=== PATIENT | male | born 1945 | race Caucasian/White ===

== ENCOUNTER 2020-07-25 08:45 | Inpatient (IN) | payer MEDICARE ==
[~2020-07-25] VITALS: Ht 170.2 cm; Wt 63.5 kg
[2020-07-25] MEDS ORDERED: GLUCOSE ORAL GEL 15 GM TUBE PO ONE (09:00)
[2020-07-25] MEDS ORDERED: FINA5TAB11 PO (09:14)
[2020-07-25] MEDS ORDERED: ANAG1CAP3 PO (09:14)
[2020-07-25] MEDS ORDERED: TAMS-3 PO (09:14)
[2020-07-25] MEDS ORDERED: ATOR40TA PO (09:14)
[2020-07-25] MEDS ORDERED: ACET-2154 PO (09:14)
[2020-07-25] MEDS ORDERED: METO-356 PO (09:14)
[2020-07-25] MEDS ORDERED: RIVA10TA PO (09:14)
[2020-07-25] MEDS ORDERED: RIOC1.5T PO (09:14)
[2020-07-25] MEDS ORDERED: FURO-151 PO (09:14)
[2020-07-25 09:15] LABS: BASOPHILS % (AUTO) 0.5 % (0.0-2.0); EOSINOPHILS # (AUTO) 0.2 K/uL (0.0-0.7); EOSINOPHILS % (AUTO) 2.1 % (0.0-7.0); HEMATOCRIT 38.8 % (36.7-47.1); HEMOGLOBIN 13.3 g/dL (12.5-16.3); LYMPHOCYTES # (AUTO) 0.7 K/uL (20.0-40.0); LYMPHOCYTES % (AUTO) 7.9 % (20.5-51.5); MEAN CORPUSCULAR HEMOGLOBIN 31.1 uug (23.8-33.4); MEAN CORPUSCULAR HGB CONC 34 g/dL (32.5-36.3); MEAN CORPUSCULAR VOLUME 90.6 fL (73.0-96.2); MONOCYTES # (AUTO) 0.5 K/uL (2.0-10.0); MONOCYTES % (AUTO) 5.8 % (0.0-11.0); NEUTROPHILS # (AUTO) 7.5 K/uL (1.8-8.9); NEUTROPHILS % (AUTO) 83.7 % (38.5-71.5); PLATELET COUNT (AUTO) 520 K/uL (152-348); RED BLOOD CELL COUNT(AUTO) 4.28 MIL/uL (4.06-5.63); WHITE BLOOD COUNT (AUTO) 8.9 K/uL (3.6-10.2)
[2020-07-25 09:27] LABS: ALANINE AMINOTRANSFERASE 27 U/L (16-63); ALKALINE PHOSPHATASE 110 U/L (50-136); BILIRUBIN,DIRECT 0.3 mg/dL (0.0-0.2); BILIRUBIN,TOTAL 1.1 mg/dL (0.2-1.0); CARBON DIOXIDE 27 mmol/L (21-32); CHLORIDE 104 mmol/L (98-107); CREATININE 1.3 mg/dL (0.6-1.3); GLUCOSE 79 mg/dL (74-106); POTASSIUM 3.9 mmol/L (3.5-5.1); TOTAL PROTEIN, SERUM 6.6 g/dL (6.4-8.2); UREA NITROGEN, BLOOD 27 mg/dL (7-18)
--- NOTE | 2020-07-25 09:27 | NUR ---
PT IS IN ROOM #1B. DR QUINTANILLA EVALUATED THE PT.
[2020-07-25 09:33] LABS: ACETAMINOPHEN < 2.0 ug/mL (10-30); ETHANOL < 3 MG/DL (0-0)
[2020-07-25] MEDS ORDERED: GLUCOSE ORAL GEL 15 GM TUBE ONE (09:33)
[2020-07-25 09:35] LABS: ASPARTATE AMINOTRANSFERASE 50 U/L (15-37)
[2020-07-25 09:46] LABS: MAGNESIUM 1.9 mg/dL (1.8-2.4); PHOSPHOROUS 3.4 mg/dL (2.5-4.9)
[2020-07-25 09:56] LABS: THYROID STIMULATING HORMONE 1.541 mIU/mL (0.358-3.740)
[2020-07-25 11:37] LABS: *BILIRUBIN,URIN NEGATIVE (NEGATIVE); *CLARITY,URINE CLEAR (CLEAR); *COLOR,URINE YELLOW (YELLOW); *KETONES,URINE TRACE (NEGATIVE); *UROBILINOGEN,URINE 0.2 E.U./dl (NORMAL); LEUKOCYTE ESTERASE ,URINE NEGATIVE (NEGATIVE); NITRITE, URINE NEGATIVE (NEGATIVE); PH,URINE 6.5 (5.0-8.0); UGLUCOSE NEGATIVE (NEGATIVE)
[2020-07-25 11:43] LABS: *AMPHETAMINE, URINE NEGATIVE (NEGATIVE); *CANNABINOID, URINE NEGATIVE (NEGATIVE); *COCCAINE, URINE NEGATIVE (NEGATIVE); *OPIATE, URINE NEGATIVE (NEGATIVE); *PHENCYCLIDINE SCREEN,URINE NEGATIVE (NEGATIVE)
[2020-07-25 12:01] LABS: *BLOOD, URINE TRACE (NEGATIVE)
[2020-07-25] MEDS ORDERED: Z GUARD REMEDY PASTE 57 GM TUBE TOP PRN (12:30)
[2020-07-25] MEDS ORDERED: HYDROCODONE/APAP 5-325MG TABLET PO PRN (12:30)
[2020-07-25] MEDS ORDERED: ONDANSETRON 4 MG/2 ML VIAL IV PRN (12:30)
[2020-07-25] MEDS ORDERED: MAGNESIUM HYDROXIDE 30 ML LIQUID UDC PO PRN (12:30)
[2020-07-25] MEDS ORDERED: HALOPERIDOL LACTATE 5 MG/1 ML VIAL IM ONE (13:15)
[2020-07-25 14:00] VITALS: BP 154/89
--- NOTE | 2020-07-25 14:10 | NUR ---
REPORT WAS GIVEN TO REFRIGERATION HOUSEMAN . PT WAS TRANSFERED TO TELEMETRY ROOM #315,
--- NOTE | 2020-07-25 14:30 | NUR ---
Received this admission from ER, 74 YO male with diagnosis of altered mental status, syncope, hypoglycemia. Transferred to bed comfortably but patient was agitated and combative, holding [employer]ING [employer]BLER's hand. Reoriented and able to tell his name, place and time. Requested for sitter for safety.
[2020-07-25 14:50] LABS: BACTERIA,URINE NONE SEEN /HPF (NONE SEEN); SQUAMOUS EPITHELIAL CELL,UR FEW /HPF (NONE SEEN); WBC,URINE 0-3 /HPF (0-3)
[2020-07-25] MEDS: IV D5 1/2 NS 1000 ML 1,000 ML IV PRN (15:37)
--- NOTE | 2020-07-25 15:40 | NUR ---
IVF started as ordered. 1:1 sitter at bedside
--- NOTE | 2020-07-25 18:31 | NUR ---
Patient has been sleeping, awaken to feed dinner but refused. IVF infusing. 1:1 sitter at bedside
--- NOTE | 2020-07-25 18:46 | NUR ---
Still sleeping, unable to wake up fully to take medicine. Endorsed for further care and follow up.
[2020-07-25 19:37] VITALS: BP 132/57
[2020-07-25] MEDS: ANAGRELIDE 1 MG PO SCH (19:55)
[2020-07-25] MEDS: ADEMPAS 1.5 MG PO SCH (19:55)
[2020-07-25] MEDS: RIVAROXABAN 10 MG TABLET PO SCH (19:57)
[2020-07-25] MEDS: ATORVASTATIN 40 MG TABLET PO SCH (20:04)
[2020-07-26] VITALS: BP 138/62
[2020-07-26 04:00] VITALS: BP 109/63
[2020-07-26] MEDS: IV D5 1/2 NS 1000 ML 1,000 ML IV PRN ×2 (04:07→15:58)
--- NOTE | 2020-07-26 06:24 | NUR ---
pt rested well in between care; occasionally combative and confused; sitter at bedside; incontinence care; needs attended; safety maintained.
[2020-07-26 06:51] LABS: BASOPHILS % (AUTO) 0.5 % (0.0-2.0); EOSINOPHILS # (AUTO) 0.1 K/uL (0.0-0.7); HEMATOCRIT 38.1 % (36.7-47.1); HEMOGLOBIN 12.7 g/dL (12.5-16.3); LYMPHOCYTES # (AUTO) 0.9 K/uL (20.0-40.0); LYMPHOCYTES % (AUTO) 11.6 % (20.5-51.5); MEAN CORPUSCULAR HEMOGLOBIN 30.2 uug (23.8-33.4); MEAN CORPUSCULAR HGB CONC 33 g/dL (32.5-36.3); MEAN CORPUSCULAR VOLUME 90.8 fL (73.0-96.2); MONOCYTES # (AUTO) 0.7 K/uL (2.0-10.0); MONOCYTES % (AUTO) 8.7 % (0.0-11.0); NEUTROPHILS # (AUTO) 5.8 K/uL (1.8-8.9); NEUTROPHILS % (AUTO) 77.2 % (38.5-71.5); PLATELET COUNT (AUTO) 492 K/uL (152-348); RED BLOOD CELL COUNT(AUTO) 4.19 MIL/uL (4.06-5.63); WHITE BLOOD COUNT (AUTO) 7.5 K/uL (3.6-10.2)
[2020-07-26 06:52] LABS: CREATININE 1.2 mg/dL (0.6-1.3); MAGNESIUM 1.9 mg/dL (1.8-2.4); PHOSPHOROUS 3.2 mg/dL (2.5-4.9); POTASSIUM 3.6 mmol/L (3.5-5.1)
--- NOTE | 2020-07-26 07:20 | NUR ---
RECEIVED PATIENT IN BED WITH EYES CLOSED AROUSES EASILY MORE COOPERATIVE NO S/S OF PAIN OR DISCOMFORTS REMAIN ON ROOM AIR WITH NO SHORTNESS OF BREATH HE HAS ONE ON ONE SITTER FOR SAFETY TELE IS SR IVF IN PROGRESS ORDERED WITH NO S/S OF INFILTERATION ON SITE PATIENT MADE COMFORTABLE WILL CONTINUE TO OBSERVE.
[2020-07-26] MEDS: FINASTERIDE 5 MG TABLET PO SCH (08:20)
[2020-07-26] MEDS: ADEMPAS 1.5 MG PO SCH ×3 (08:20→16:08)
[2020-07-26] MEDS: ANAGRELIDE 1 MG PO SCH ×2 (08:20→16:08)
--- NOTE | 2020-07-26 09:20 | NUR ---
PATIENT SEEN AND EXAMINED BY DR MATT WITH NEW ORDERS AND NOTED
[2020-07-26 12:00] VITALS: BP 129/68
--- NOTE | 2020-07-26 12:01 | NUR ---
CALL RECEIVED FROM DR HOLDER STATED THAT HE ALREADY SPOKEN TO PATIENTS AND WILL START PATIENT ON SINEMET QID BUT TIME SPECIFIC AND NOTED.
[2020-07-26] MEDS: ropiniROLE 0.25 MG TABLET PO SCH ×3 (13:53→20:41)
--- NOTE | 2020-07-26 14:45 | NUR ---
PATIENT IS BEING PREPPED FOR MRI ORDERED HE IS UNABLE TO GIVE ME ACCURATE INFORMATION SO I CALLED THE PATIENTS FRED SPOKE WITH HER AND SHE ASSISTED WITH THE MRI QUESTIONAIRES AND DOCUMENTED.
[2020-07-26] MEDS ORDERED: CARBIDOPA/LEVODOPA 25-100MG TABLET PO SCH (16:00)
[2020-07-26 16:01] VITALS: BP 98/53
[2020-07-26] MEDS: RIVAROXABAN 10 MG TABLET PO SCH (16:16)
--- NOTE | 2020-07-26 16:17 | NUR ---
SEEN BY THE PHYSICAL THERAPY WITH NO AMBULATION YET TODAY WILL SEE PATIENT TOMORROW TO CONTINUE THERAPEUTIC EXERCISES.IV SITE RIGHT UPPER ARM INFILTERATED RESTARTED TO HIS LEFT FOREARM WITH GAUGE 20 WITH ONE ATTEMPT CONTINUE ON IVF ORDERED CONTINUE WITH ONE ON ONE SITTER FOR SAFETY PATIENT IS ALERT BUT IS DISORIENTED AND HYPERVOCAL ALL NEEDS ANTICIPATED AND SATISFIED.WILL CONTINUE TO OBSERVE
[2020-07-26 16:18] LABS: *CREATININE,URINE 371.7 mg/dL (30-125); *URINE TOTAL PROTEIN RANDOM 38.5 mg/dL (<150/24HR)
--- NOTE | 2020-07-26 18:00 | NUR ---
RESTING IN BED DENIES DISCOMFORTS REMAINS DISORGANISED WITH DISORIENTATION RUPINDER A SITTER FOR SAFETY WILL CONTINUE TO OBSERVE.
--- NOTE | 2020-07-26 19:55 | NUR ---
REceived patient in bed.Confused and hyperverbal .Orientation rendered.Patient denies pain or discomfort.No s/s of distress noted at this time .On RA.IV on left FA with 20 g with D5 1/2 NS running well at 75 cc/hr. Patient has 1 :1 sitter for safety.Complaint with medications.Will continue to monitor.
[2020-07-26 20:00] VITALS: BP 125/61
[2020-07-26] MEDS: ATORVASTATIN 40 MG TABLET PO SCH (20:41)
[2020-07-26] MEDS: Z GUARD REMEDY PASTE 57 GM TUBE TOP SCH (20:50)
[2020-07-27 00:23] VITALS: BP 130/67
[2020-07-27] MEDS: ACETAMINOPHEN 325 MG TABLET PO PRN ×2 (01:43→20:09)
[2020-07-27 04:51] VITALS: BP 129/67
[2020-07-27] MEDS: IV D5 1/2 NS 1000 ML 1,000 ML IV PRN ×2 (05:38→22:29)
[2020-07-27 06:41] LABS: BASOPHILS # (AUTO) 0.1 K/uL (0.0-8.0); BASOPHILS % (AUTO) 0.8 % (0.0-2.0); EOSINOPHILS # (AUTO) 0.2 K/uL (0.0-0.7); EOSINOPHILS % (AUTO) 2.5 % (0.0-7.0); HEMATOCRIT 35.1 % (36.7-47.1); LYMPHOCYTES # (AUTO) 0.9 K/uL (20.0-40.0); MEAN CORPUSCULAR HEMOGLOBIN 31.2 uug (23.8-33.4); MEAN CORPUSCULAR HGB CONC 34 g/dL (32.5-36.3); MEAN CORPUSCULAR VOLUME 91.3 fL (73.0-96.2); MONOCYTES # (AUTO) 0.6 K/uL (2.0-10.0); MONOCYTES % (AUTO) 8.5 % (0.0-11.0); NEUTROPHILS # (AUTO) 5.5 K/uL (1.8-8.9); NEUTROPHILS % (AUTO) 76.2 % (38.5-71.5); PLATELET COUNT (AUTO) 449 K/uL (152-348); RED BLOOD CELL COUNT(AUTO) 3.84 MIL/uL (4.06-5.63); WHITE BLOOD COUNT (AUTO) 7.2 K/uL (3.6-10.2)
[2020-07-27 07:04] LABS: CREATININE 1.3 mg/dL (0.6-1.3); MAGNESIUM 1.8 mg/dL (1.8-2.4); PHOSPHOROUS 3.3 mg/dL (2.5-4.9); POTASSIUM 3.4 mmol/L (3.5-5.1)
[2020-07-27] MEDS ORDERED: POTASSIUM CHLORIDE 20 MEQ TAB.PRT.SR PO ONE ×2 (08:15→09:00)
--- NOTE | 2020-07-27 08:21 | NUR ---
Patient refused morning vitals and stating that he needs to talk to the doctor before vitals are taken. Educated the need but not making any sense. also refused breakfast
[2020-07-27 08:58] VITALS: BP 128/83
[2020-07-27] MEDS: Z GUARD REMEDY PASTE 57 GM TUBE TOP SCH ×2 (09:03→21:33)
--- NOTE | 2020-07-27 09:15 | NUR ---
Asssisted 1:1 with vital signs taking, patient got aggressive and tried to squeeze nurse's hand. Distracted patient but refused morning medications and stated 'Take my deposition. It's none of your business why I don't want to take my medication."
[2020-07-27] MEDS: ANAGRELIDE 1 MG PO SCH ×2 (10:22→20:02)
[2020-07-27] MEDS: ADEMPAS 1.5 MG PO SCH ×3 (10:22→20:02)
[2020-07-27] MEDS: FINASTERIDE 5 MG TABLET PO SCH (10:22)
[2020-07-27] MEDS: ropiniROLE 0.25 MG TABLET PO SCH ×4 (10:22→20:10)
[2020-07-27 12:25] VITALS: BP 135/76
--- NOTE | 2020-07-27 13:19 | NUR ---
Patient refused lunch at this time since he just ate a little breakfast, and finished ensure. Compliant with medications at this time. But still confused
--- NOTE | 2020-07-27 13:43 | NUR ---
picked up for MRI. Report given to [facility] EMT personnel
--- NOTE | 2020-07-27 15:01 | NUR ---
Fernanda, patient's picked up cellphone and tow driver, signed belongings list
--- NOTE | 2020-07-27 16:40 | NUR ---
Patient came back from MRI, report given from EMT personnel and 1:1 sitter that patient getting upset and agitated coming back. Patient in bed awake, still confused. On RA with no SOB or distress at this time. 1:1 sitter at bedside for safety.
[2020-07-27 16:45] VITALS: BP 141/73
--- NOTE | 2020-07-27 17:22 | NUR ---
Patient refusing medications again, stating he needs to go home and "take care of cases.' Refusing to eat too. Encouraged but gets agitated
[2020-07-27] MEDS: RIVAROXABAN 10 MG TABLET PO SCH (20:08)
[2020-07-27] MEDS: ATORVASTATIN 40 MG TABLET PO SCH (20:09)
[2020-07-27 20:32] VITALS: BP 130/75
[2020-07-28 00:39] VITALS: BP 120/62
[2020-07-28 05:00] VITALS: BP 122/91
--- NOTE | 2020-07-28 05:00 | NUR ---
Patient awake at this time. Finally agreed to be cleaned and changed, only slept for a few hours
--- NOTE | 2020-07-28 06:58 | NUR ---
Patient very argumentative, started to hit sitter and nurse when cleaned and changed. Doesn't want to be touched and get aggressive, removing clothes
[2020-07-28 07:30] VITALS: BP 151/84
[2020-07-28] MEDS ORDERED: FURO-151 PO (08:01)
[2020-07-28] MEDS ORDERED: ROPI0.252 PO (08:03)
--- NOTE | 2020-07-28 09:00 | NUR ---
VERY COOPERATIVE WITH MEDS. DENIES PAIN OR DISCOMFORT. INC URINE. BED BATH & LINEN CHANGED.
[2020-07-28] MEDS: ADEMPAS 1.5 MG PO SCH ×2 (09:13→12:48)
[2020-07-28] MEDS: ropiniROLE 0.25 MG TABLET PO SCH ×2 (09:13→12:48)
[2020-07-28] MEDS: ANAGRELIDE 1 MG PO SCH (09:14)
[2020-07-28] MEDS: FINASTERIDE 5 MG TABLET PO SCH (09:14)
[2020-07-28] MEDS: Z GUARD REMEDY PASTE 57 GM TUBE TOP SCH (09:15)
[2020-07-28 12:00] VITALS: BP 145/84
[2020-07-28] MEDS: IV D5 1/2 NS 1000 ML 1,000 ML IV PRN (12:48)
[2020-07-28 16:00] VITALS: BP 116/70
--- NOTE | 2020-07-28 16:00 | NUR ---
IV DC'D. ANGIOCATH REMOVED INTACT. PREPARED FOR DISCHARGE. DIAPER CHANGED.
--- NOTE | 2020-07-28 16:50 | NUR ---
Discharged via [place] to ambulance. No c/o discomfort.
== END 2020-07-28 17:00 | DRG 56 ==
LOC: ER 08:45 → TELE3 12:21 → MEDSURG3 07-27 09:05
PROVIDERS: ADMIT Internal Medicine; ATTEND Internal Medicine
DX: G31.83 Neurocognitive disorder with Lewy bodies (principal); N17.0 Acute kidney failure with tubular necrosis; G93.41 Metabolic encephalopathy; M62.82 Rhabdomyolysis; Z79.01 Long term (current) use of anticoagulants; E78.5 Hyperlipidemia, unspecified; D47.3 Essential (hemorrhagic) thrombocythemia; E87.6 Hypokalemia; N40.0 Benign prostatic hyperplasia without lower urinary tract symptoms; N18.30 Chronic kidney disease, stage 3 unspecified; I13.10 Hypertensive heart and chronic kidney disease without heart failure, with stage 1 through stage 4 chronic kidney disease, or unspecified chronic kidney disease; Z86.711 Personal history of pulmonary embolism; M48.00 Spinal stenosis, site unspecified; Z91.81 History of falling; F02.80 Dementia in other diseases classified elsewhere, unspecified severity, without behavioral disturbance, psychotic disturbance, mood disturbance, and anxiety
CPT/HCPCS: 36415; 70030-TC; 70450; 70551; 71045; 83605; 83690; 83735; 83970; 84100; 84156; 84300; 84443; 85025; 85730; 87040; 87086; 93005; A4663; A9150; C1758; G0378; G0480; J3490; J7030; J8499